=== PATIENT | female | born 1940 | race Caucasian/White ===

== ENCOUNTER 2017-10-11 10:52 | Outpatient (RCR) | payer MEDICARE, OTHER ==
[~2017-10-11 10:52] MED LIST: BUMETANIDE PO; HYDROCODONE PO; NIFEDIPINE PO; PANTOPRAZOLE SO40 MG PO; SERTRALINE PO
== END 2017-10-13 ==
LOC: PT 10:52
PROVIDERS: ATTEND Specialist
DX: S42.232D 3-part fracture of surgical neck of left humerus, subsequent encounter for fracture with routine healing (principal); M25.512 Pain in left shoulder; M25.612 Stiffness of left shoulder, not elsewhere classified; M62.81 Muscle weakness (generalized)
CPT/HCPCS: 97110 ×12; 97140 ×4; 97162; G8984 ×2; G8985 ×2